=== PATIENT | female | born 1945 | race Caucasian/White ===

== ENCOUNTER 2020-10-29 21:13 | Emergency (ER) | payer BC, MEDICARE ==
[~2020-10-29] VITALS: Ht 167.6 cm; Wt 110.7 kg
[2020-10-29] MEDS ORDERED: TETanus/Pertussis (Acell)/Diphther VAC/PF (Tdap-Adult) 0.5ml syringe IMVAC ONE (21:30)
[2020-10-29 22:47] VITALS: BP 162/56
[2020-10-29] MEDS ORDERED: LIDOcaine 1% W/epiNEPHrine 1:200,000 10ml vial IJ ONE (23:50)
[2020-10-30] MEDS ORDERED: DOXYCYCLINE 100MG CAPSULE PO STA (00:13)
[2020-10-30] MEDS ORDERED: fluconazole 100mg tablet PO ONE (00:15)
[2020-10-30] MEDS ORDERED: DOXY100C2 PO (00:21)
[2020-10-30] MEDS ORDERED: FLUC200T PO (00:21)
== END 2020-10-30 00:58 | disposition home or self-care (01) ==
LOC: ER 21:15
DX: S81.812A Laceration without foreign body, left lower leg, initial encounter (principal); S00.12XA Contusion of left eyelid and periocular area, initial encounter; I48.91 Unspecified atrial fibrillation; E78.00 Pure hypercholesterolemia, unspecified; I10 Essential (primary) hypertension; G89.29 Other chronic pain; Z79.899 Other long term (current) drug therapy; W20.8XXA Other cause of strike by thrown, projected or falling object, initial encounter; Y93.89 Activity, other specified; Y92.89 Other specified places as the place of occurrence of the external cause; Y99.8 Other external cause status
CPT/HCPCS: 12001; 70450; 72125; 90471; 90715; 99285

== ENCOUNTER 2023-11-29 13:10 | Emergency (ER) | payer BC ==
[~2023-11-29] VITALS: Ht 167.6 cm; Wt 94.3 kg
[~2023-11-29 13:10] MED LIST: FLUC200T PO
[2023-11-29 13:24] VITALS: TEMP 97.4
[2023-11-29 15:35] LABS: BASOPHILS # (AUTO) 0.1 X10'3 (0-0.2); BASOPHILS % (AUTO) 0.6 % (0-1); EOSINOPHILS # (AUTO) 0.1 X10'3 (0-0.9); EOSINOPHILS % (AUTO) 0.7 % (0-6); HEMATOCRIT 40.5 % (35.0-45.0); HEMOGLOBIN 13.5 g/dl (12.0-16.0); LYMPHOCYTES # (AUTO) 1.1 X10'3 (1.1-4.8); LYMPHOCYTES % (AUTO) 9.7 % (21-51); MEAN CORPUSCULAR HEMOGLOBIN 30.6 PG (27.0-31.0); MEAN CORPUSCULAR HGB CONC 33.4 g/dL (33.0-36.5); MEAN CORPUSCULAR VOLUME 91.7 FL (78-98); MONOCYTES # (AUTO) 0.7 X10'3 (0-0.9); MONOCYTES % (AUTO) 6.4 % (2-12); NEUTROPHILS # (AUTO) 9.1 X10'3 (1.8-7.7); NEUTROPHILS % (AUTO) 82.6 % (42-75); PLATELET COUNT 261 X10'3 (140-440); RED BLOOD COUNT 4.41 X10'6 (4.20-5.60); RED CELL DISTRIBUTION WIDTH 14.6 % (11.5-14.5)
[2023-11-29] MEDS: metoclopramide 5 mg/ml inj IV ONE (15:41)
[2023-11-29] MEDS: dexamethasone sod phosphate 10mg/ml inj IV STA (15:41)
[2023-11-29] MEDS: diphenhydrAMINE 50 mg/ml inj IV ONE (15:42)
[2023-11-29 15:48] LABS: APTT 40 SECONDS (22-32); INR 1.1 INR; PROTHROMBIN TIME 12.2 SECONDS (9.0-12.0)
[2023-11-29 15:50] LABS: ALANINE AMINOTRANSFERASE 27 U/L (12-78); ALBUMIN 3.5 G/DL (3.4-5.0); ALBUMIN/GLOBULIN RATIO 0.7 (1.1-1.5); ALKALINE PHOSPHATASE 80 IU/L (46-116); ANION GAP 8 (8-16); ASPARTATE AMINO TRANSFERASE 19 U/L (10-37); BILIRUBIN,TOTAL 0.8 MG/DL (0.1-1.0); BLOOD UREA NITROGEN 20 MG/DL (7-18); BUN/CREATININE RATIO 20.4 (10.0-20.0); CALCIUM 10.9 MG/DL (8.5-10.1); CHLORIDE 103 MMOL/L (99-107); CREATININE 0.98 MG/DL (0.40-0.90); GLUCOSE 101 MG/DL (70-104); SODIUM 140 MMOL/L (135-145); TOTAL CARBON DIOXIDE 29.3 MMOL/L (24-32); TOTAL PROTEIN 8.2 G/DL (6.4-8.2); eCRCL 45 ML/MIN; eGFR 55 ML/MIN
[2023-11-29] MEDS: HYDROcodone/acetaminophen 5mg/325mg tablet PO ONE (15:56)
[2023-11-29 16:38] VITALS: BP 147/73; PULSE 66; RESP 16; O2SAT 95
== END 2023-11-29 17:09 | disposition home or self-care (01) ==
LOC: ER 13:10
DX: G43.909 Migraine, unspecified, not intractable, without status migrainosus (principal); I48.91 Unspecified atrial fibrillation; E78.00 Pure hypercholesterolemia, unspecified; I10 Essential (primary) hypertension; G89.29 Other chronic pain; M54.9 Dorsalgia, unspecified; Z79.899 Other long term (current) drug therapy
CPT/HCPCS: 36415; 70450; 80053; 82948; 85025; 85610; 85730; 96374; 96375; 99285; J1100; J1200; J2765

== ENCOUNTER 2025-01-23 08:38 | Outpatient (CLI) | payer BC ==
[~2025-01-23 08:38] MED LIST changes: +ATOR40TA71 PO; -FLUC200T PO; +FURO40TA4 PO; +RIVA20TA PO; +TRAM50TA2 PO
[2025-01-23 09:24] LABS: MEAN PLATELET VOLUME 8.5 FL (7.4-10.4); RED CELL DISTRIBUTION WIDTH 14.7 % (11.5-14.5)
[2025-01-23 09:31] LABS: CREATININE 0.95 MG/DL (0.40-0.90); TOTAL CARBON DIOXIDE 26.3 MMOL/L (24-32); eGFR 57 ML/MIN
== END 2025-01-23 23:59 | disposition home or self-care (01) ==
LOC: RAD 08:38
PROVIDERS: ATTEND Internal Medicine Interventional Cardiology
DX: I12.9 Hypertensive chronic kidney disease with stage 1 through stage 4 chronic kidney disease, or unspecified chronic kidney disease (principal); N18.9 Chronic kidney disease, unspecified; E78.5 Hyperlipidemia, unspecified; I48.0 Paroxysmal atrial fibrillation
CPT/HCPCS: 36415; 80048; 85025